=== PATIENT | male | born 1990 | race Caucasian/White ===

== ENCOUNTER 2023-12-04 10:02 | Outpatient (CLI) | payer OTHER | END 2023-12-04 10:03 | disposition home or self-care (01) | LOC: CSHCT 10:02 | PROVIDERS: ATTEND Orthopaedic Surgery | DX: R10.9 Unspecified abdominal pain (principal); K50.00 Crohn's disease of small intestine without complications; K44.9 Diaphragmatic hernia without obstruction or gangrene; K29.70 Gastritis, unspecified, without bleeding; K56.699 Other intestinal obstruction unspecified as to partial versus complete obstruction | CPT/HCPCS: 74178 ==

== ENCOUNTER 2024-01-25 08:06 | Outpatient (CLI) | payer OTHER | END 2024-01-25 08:07 | disposition home or self-care (01) | LOC: CSHSLEEP 08:06 | PROVIDERS: ATTEND Student in an Organized Health Care Education/Training Program | DX: R06.81 Apnea, not elsewhere classified (principal); R53.83 Other fatigue; R09.89 Other specified symptoms and signs involving the circulatory and respiratory systems; R51.9 Headache, unspecified; R41.89 Other symptoms and signs involving cognitive functions and awareness; F32.A Depression, unspecified; F41.9 Anxiety disorder, unspecified; K21.9 Gastro-esophageal reflux disease without esophagitis; E66.9 Obesity, unspecified; G47.10 Hypersomnia, unspecified | CPT/HCPCS: 95800 ==